=== PATIENT | male | born 1945 | race Caucasian/White ===

== ENCOUNTER → 2024-06-12 | Outpatient (REF) | payer MEDICARE, OTHER ==
[~2024-06-12] MED LIST: ARICEPT5 MG PO; CARVEDILOL12.5 MG PO; ELIQUIS5 MG PO; ENTRESTO 24 MG1 EACH PO; FARXIGA10 MG PO; FUROSEMIDE40 MG PO; JANUVIA50 MG PO; LIPITOR20 MG PO; ONE DAILY FOR1 EAC2; PREVAGEN PO; VERQUVO5 MG PO
== END ==
LOC: DX 08:24
PROVIDERS: ATTEND Physician Assistant Medical
DX: K57.30 Diverticulosis of large intestine without perforation or abscess without bleeding (principal); K64.8 Other hemorrhoids
CPT/HCPCS: 74270